=== PATIENT | male | born 2000 | race Caucasian/White ===

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

== ENCOUNTER → 2021-07-22 | Outpatient (CLI) | payer OTHER ==
[~2021-07-22] MED LIST changes: +BENADRYL25 MG PO
== END | disposition home or self-care (01) ==
LOC: LAB 07:44 → LAB SHORT 07:44
DX: J33.9 Nasal polyp, unspecified (principal)
CPT/HCPCS: 88305